=== PATIENT | female | born 1960 | race Caucasian/White ===

== ENCOUNTER → 2017-02-22 | Outpatient (CLI) | payer BC ==
[~2017-02-22] MED LIST: ALBU8.5H6 IH; CEFD300C PO; CHOL100017 PO; CYCL1DRO OP; GADOBUTROL 10 MMOL/10 ML VIAL IV ONE; LEVO150T PO; OMEP20TA8 PO
--- NOTE | 2017-02-22 15:12 | KCIC ---
INDICATION: Flashes of light in eyes. Abnormal clinical exam. TECHNIQUE: Whole brain sagittal T1, axial T1, axial T2, axial FLAIR, axial T2 gradient, diffusion imaging with ADC map, postcontrast axial, and postcontrast coronal sequences are provided. 10 mL of intravenous Gadavist was administered in total for today's exams. Please see separate MRI orbits report. FINDINGS: The ventricles and sulci are within normal limits for age. A few FLAIR hyperintensities in the supratentorial white matter are not specific but most suggestive of minimal small vessel ischemic disease. There is no acute intracranial hemorrhage or extra-axial fluid collection. There is no mass effect or midline shift. There is no restricted diffusion to suggest an acute infarct. Sagittal midline structures are unremarkable. The pituitary and suprasellar region are unremarkable. There is no suprasellar mass or mass effect on the optic chiasm. Intracranial flow voids are preserved. There is minimal pansinus mucosal thickening. Mastoid air cells are relatively clear. There is no pathologic enhancement. IMPRESSION: No acute intracranial findings. Electronically signed by: Miguel Toledo MD (02/22/2017 3:09 PM) [id number]
--- NOTE | 2017-02-22 15:14 | KCIC ---
INDICATION: Flashes of light within eyes TECHNIQUE: Source images and maximum intensity projection reformatted images are provided. Imaging was performed before and after administration of 10 mL of intravenous Gadavist. FINDINGS: Superior sagittal sinus and transverse sinuses are patent. Deep cerebral veins are patent. Flow is preferential to the left transverse sinus. IMPRESSION: Normal MR venogram. Electronically signed by: Miguel Toledo MD (02/22/2017 3:11 PM) [email or web address]
--- NOTE | 2017-02-22 15:21 | KCIC ---
INDICATION: Recent onset of flashes of light in eyes. Abnormal clinical exam. Optic papillitis. TECHNIQUE: Imaging through the orbits includes axial T1, coronal T1, fat-suppressed coronal T2, coronal T2, fat-suppressed axial postcontrast, and fat-suppressed coronal postcontrast series. 10 mL of intravenous Gadavist was administered without complication. Recent MRI brain was reviewed in comparison. FINDINGS: There is no signal abnormality within the optic nerves. There is no pathologic enhancement. Nonspecific minimal fluid is noted within the optic sheaths, can be a finding of elevated intracranial pressures although there are no additional findings to suggest intracranial hypertension on recent MRI brain. There is no extraocular muscle enlargement. There is no orbital mass. Globes are grossly unremarkable. IMPRESSION: Normal MRI orbits. Electronically signed by: Miguel Toledo MD (02/22/2017 3:17 PM) [id number]
== END | disposition home or self-care (01) ==
LOC: KCIC MRI 12:48
DX: H46.02 Optic papillitis, left eye (principal)
CPT/HCPCS: 70543; 70546; 70553; A9585